=== PATIENT | male | born 1965 | race Caucasian/White ===

== ENCOUNTER → 2016-12-16 | Outpatient (CLI) | payer OTHER ==
[~2016-12-16] VITALS: Ht 175.3 cm; Wt 81.6 kg
[~2016-12-16] MED LIST: ASCORBIC ACID500 M3 PO; ASPIRIN81 M2 PO; FISH OIL CONC1000 M1 PO; L-LYSINE500 M1 PO; NORVASC10 MG PO
== END | disposition home or self-care (01) ==
LOC: AMB 11:37
PROC: 0DJD8ZZ Inspection of Lower Intestinal Tract, Via Natural or Artificial Opening Endoscopic (ICD-10-PCS; principal; 2016-12-16)
DX: Z12.11 Encounter for screening for malignant neoplasm of colon (principal); K92.1 Melena; I10 Essential (primary) hypertension; Z82.49 Family history of ischemic heart disease and other diseases of the circulatory system; Z83.3 Family history of diabetes mellitus; Z84.1 Family history of disorders of kidney and ureter; Z79.82 Long term (current) use of aspirin